=== PATIENT | male | born 1975 | race Caucasian/White ===

== ENCOUNTER 2021-03-13 19:42 | Inpatient (IN) | payer OTHER ==
[2021-03-13 20:13] VITALS: BMI 31.1
[2021-03-13] MEDS ORDERED: DEXAMETHASONE SOD PHOSPHATE 10 MG/1 ML VIAL IVPUSH ONE (21:04)
[2021-03-13] MEDS ORDERED: ACETAMINOPHEN/CAFFEINE/BUTALBITAL 1 TAB PO ONE (21:08)
[2021-03-13] MEDS ORDERED: ALBUTEROL SO4 2.5/IPRATROPIUM 0.5 INH SOL 3 ML VIAL.NEB. NEB SCH (21:15)
[2021-03-13] MEDS ORDERED: ACETAMINOPHEN/CAFFEINE/BUTALBITAL 1 TAB ONE (21:24)
[2021-03-13] MEDS ORDERED: DEXAMETHASONE SOD PHOSPHATE 10 MG/1 ML VIAL ONE (21:25)
[2021-03-13 21:42] LABS: BASO % 0.2 % (0-2.0); EOS % 0.4 % (0-4.5); HEMATOCRIT 43.7 % (35.4-49); HEMOGLOBIN 14.9 GM/dL (11.7-16.9); LYMPH % 13.8 % (8-40); MCH 32.3 pg (25.7-33.7); MCHC 34.1 g/dl (32.0-35.9); MEAN CELL VOLUME 94.7 fl (80-96); MEAN PLT VOLUME 8.2 fl (7.5-11.1); MONO % 7.2 % (3.8-10.2); NEUT % 78.4 % (42.8-82.8); PLATELET COUNT 278 K/MM3 (134-434); RBC 4.62 M/mm3 (4.00-5.60); RDW 13.3 % (11.9-15.9); WHITE BLOOD COUNT 14.6 K/mm3 (4.0-10.0)
[2021-03-13 21:44] LABS: VENOUS BASE EXCESS 0.9 mmol/L (-2-2); VENOUS O2 SATURATION 82.1 % (70-80); VENOUS PCO2 44.6 mmHg (38-52); VENOUS PH 7.389 (7.310-7.410)
[2021-03-13 21:50] LABS: INR 1.14 (0.83-1.09)
[2021-03-13 22:00] LABS: PH,URINE 5.5 (5.0-8.0); URINE APPEARANCE CLEAR; URINE BILIRUBIN NEGATIVE (NEGATIVE); URINE COLOR YELLOW; URINE GLUCOSE (UA) NEGATIVE (NEGATIVE); URINE KETONE NEGATIVE (NEGATIVE); URINE LEUK ESTERASE NEGATIVE (NEGATIVE); URINE NITRITE NEGATIVE (NEGATIVE); URINE PROTEIN TRACE (NEGATIVE)
[2021-03-13 22:02] LABS: CHLORIDE 103 mmol/L (98-107); SODIUM 137 mmol/L (136-145)
[2021-03-13 22:04] LABS: CALCIUM 9.9 mg/dL (8.5-10.1)
[2021-03-13 22:05] LABS: ALBUMIN 4.1 g/dl (3.4-5.0); ANION GAP 7 MMOL/L (8-16); BLOOD UREA NITROGEN 15.6 mg/dL (7-18); CO2 27 mmol/L (21-32); GLUCOSE,RANDOM 110 mg/dL (74-106)
[2021-03-13] MEDS ORDERED: ALBUTEROL SO4 2.5/IPRATROPIUM 0.5 INH SOL 3 ML VIAL.NEB. NEB PRN (22:06)
[2021-03-13 22:08] LABS: SGOT/AST 24 U/L (15-37); SGPT/ALT 40 U/L (13-61)
[2021-03-13 22:09] LABS: BILIRUBIN,TOTAL 0.8 mg/dL (0.2-1); LDH 187 U/L (87-246); TOT PROT 7.7 g/dl (6.4-8.2)
[2021-03-13 22:10] LABS: ALK PHOS 69 U/L (45-117)
[2021-03-13] MEDS ORDERED: LACTATED RINGERS SOLUTION 1,000 ML/1,000 ML INFUS.BAG IV SCH (22:15)
[2021-03-13] MEDS ORDERED: AZITHROMYCIN 250 MG TABLET PO ONE (22:22)
[2021-03-13] MEDS ORDERED: ASPIRIN 325 MG TABLET PO ONE ×2 (22:42)
[2021-03-13] MEDS ORDERED: ASPIRIN 325 MG ENTERIC COATED TABLET (FP) ONE (23:34)
[2021-03-13] MEDS ORDERED: AZITHROMYCIN 250 MG TABLET ONE (23:34)
[2021-03-14] MEDS ORDERED: ACETAMINOPHEN INJECTION 100 ML IVPB ONE ×2 (05:55→07:43)
[2021-03-14] MEDS ORDERED: ACETAMINOPHEN 1000 MG/100 ML VIAL (NON FORMULARY) IVPB ONE (07:04)
[2021-03-14 08:51] VITALS: TEMP 98
[2021-03-14] MEDS ORDERED: ENOXAPARIN NA (PORCINE) 40 MG/0.4 ML DISP.SYRIN SQ SCH (10:00)
[2021-03-14] MEDS ORDERED: PANTOPRAZOLE 40 MG TABLET PO SCH (10:00)
[2021-03-14] MEDS ORDERED: BUDESONIDE/FORMETEROL FUMARATE 160/4.5 mcg INHALER IH SCH (11:45)
[2021-03-14] MEDS ORDERED: predniSONE 20 MG TABLET (UD) PO SCH (11:45)
[2021-03-14] MEDS ORDERED: ALBUTEROL SO4 2.5/IPRATROPIUM 0.5 INH SOL 3 ML VIAL.NEB. NEB SCH (12:00)
[2021-03-14] MEDS ORDERED: PT OWN MED DRAWER 7, Y5N ONE (12:17)
[2021-03-14 15:20] VITALS: BP 132/77; PULSE 87
== END 2021-03-14 15:56 | disposition home or self-care (01) | DRG 191 ==
LOC: JER 19:42 → JERBED 22:11
PROVIDERS: ADMIT Internal Medicine; ATTEND Internal Medicine
DX: J44.1 Chronic obstructive pulmonary disease with (acute) exacerbation (principal); J98.11 Atelectasis; J44.0 Chronic obstructive pulmonary disease with (acute) lower respiratory infection; J20.9 Acute bronchitis, unspecified; R07.9 Chest pain, unspecified; D72.829 Elevated white blood cell count, unspecified; B34.9 Viral infection, unspecified
CPT/HCPCS: 36415; 71046-TC-FY; 80053; 81003; 82550; 82553; 82728; 82803; 83605; 83615; 84484; 85025; 85610; 85730; 86140; 87804; 93005; 93010; 99285-25; C9803; G0378; J0131; J1100; U0003; U0005